=== PATIENT | male | born 1960 | race Caucasian/White ===

== ENCOUNTER 2022-03-09 10:33 | Emergency (ER) | payer SELFPAY ==
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
[2022-03-09 13:31] VITALS: BP 133/71; PULSE 88; O2SAT 94
== END 2022-03-09 13:33 | disposition home or self-care (01) ==
LOC: ED 10:33
DX: S27.1XXA Traumatic hemothorax, initial encounter (principal); S22.42XA Multiple fractures of ribs, left side, initial encounter for closed fracture; S20.412A Abrasion of left back wall of thorax, initial encounter; S30.811A Abrasion of abdominal wall, initial encounter; S50.312A Abrasion of left elbow, initial encounter; V20.4XXA Motorcycle driver injured in collision with pedestrian or animal in traffic accident, initial encounter; Z72.0 Tobacco use; Z28.310 Unvaccinated for COVID-19; Z79.891 Long term (current) use of opiate analgesic
CPT/HCPCS: 71250; 73080; 74176; 99285

== ENCOUNTER 2022-04-07 07:20 | Observation (INO) | payer SELFPAY ==
[2022-04-07] MEDS ORDERED: DUONEB 0.5-3 MG/3 ml Neb IH ONE ×4 (07:23→11:08)
[2022-04-07] MEDS ORDERED: solu-MEDROL ONE (07:26)
[2022-04-07] MEDS ORDERED: Sterile H2O 10 ml IJ ONE (07:26)
[2022-04-07] MEDS ORDERED: solu-MEDROL 125 MG, Sterile H2O 10 ml 2 ML IV ONE ×2 (07:27)
[2022-04-07] MEDS ORDERED: PROVENTIL Solution 2.5 MG/0.5 ML IH ONE ×2 (07:33)
[2022-04-07 07:34] LABS: Absolute Neutrophil Ct (ANC) 8.57 x10^3/uL (1.4-6.9); Basophil (Absolute #) 0.12 x10^3/uL (0-0.4); Eosinophil % 3.5 % (0.00-5.0); Eosinophil (Absolute #) 0.47 x10^3/uL (0-0.5); Hematocrit 52.4 % (42-50); Hemoglobin 17.2 g/dL (12.5-18.0); Lymphocyte (Absolute #) 2.84 x10^3/uL (1.0-4.6); Lymphocytes % 21.4 % (24.0-44.0); Mean Cell Volume 97.8 fL (78-100); Mean Corpuscular Hemoglobin 32.1 pg (26-32); Mean Corpuscular Hgb Concent. 32.8 g/dL (32-36); Mean Platelet Volume 9.8 fL (7.5-11.0); Monocyte (Absolute #) 1.22 x10^3/uL (0.0-1.3); Monocytes % 9.2 % (0.0-12.0); Neutrophil % 64.6 % (36.0-66.0); Platelet Count 231 x10^3/uL (150-450); Red Blood Count 5.36 x10^6/uL (4.1-5.6); Red Cell Distribution Width 13.2 % (11.5-14.0); White Blood Count 13.3 x10^3/uL (4.0-10.5)
[2022-04-07 07:49] LABS: INR 1.01 (0.8-3.0); PROTIME 10.7 SECONDS (9.4-12.5); PTT 26.2 SECONDS (25.1-36.5)
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
[2022-04-07 07:56] LABS: ALBUMIN 4.7 g/dL (3.5-5.0); ALKALINE PHOSPHATASE 127 U/L (38-126); ANION GAP 13.5 MEQ/L (5-15); BLOOD UREA NITROGEN 20 mg/dL (9-20); CHLORIDE 100 mmol/L (98-107); Calcium 9.4 mg/dL (8.4-10.2); Carbon Dioxide 31 mmol/L (22-30); Creatinine 1 1.12 mg/dL (0.66-1.25); EST GLOMERULAR FILTRATION RATE > 60.0 ML/MIN; Glucose 160 mg/dL (74-106); NT PRO BNP 63.5 pg/mL (0-900); Potassium 4.1 mmol/L (3.5-5.1); SGOT/AST 27 U/L (17-59); SGPT/ALT 23 U/L (0-50); SODIUM 140 mmol/L (137-145); Total Protein 8.3 g/dL (6.3-8.2)
[2022-04-07 08:09] LABS: VBG BASE EXCESS 5.5 (-2.0-2.0); VBG CARBOXYHEMOGLOBIN 4.1 % T HGB (0.0-6.9); VBG HCO3- 34.6 meq/L (22-28); VBG HEMOGLOBIN 18.1
[2022-04-07 08:10] LABS: VBG pH 7.29 (7.32-7.42)
[2022-04-07] MEDS ORDERED: VENTOLIN 20 ML BOTTLE IH SCH (08:15)
[2022-04-07 08:29] LABS: INFLUENZA A NEGATIVE (NEGATIVE); INFLUENZA B NEGATIVE (NEGATIVE); RESPIRATORY SYNCTIAL VIRUS NEGATIVE (Negative); SARS-CoV-2 Xpert Express NEGATIVE (NEGATIVE)
--- NOTE | 2022-04-07 09:26 | XRAY ---
Indication: Dyspnea. Left rib fractures on CT chest March 10, 2022. Comparison: None Portable chest hyperinflated with recent CT proven left base hemothorax/atelectasis, right base calcified pleural plaquing, and multiple left rib fractures. Remaining heart and lungs unremarkable. Bony thorax demonstrates mild osteopenia and degenerative changes.
--- NOTE | 2022-04-07 10:20 | XRAY ---
Indication: Altered loss of consciousness. Multiple contiguous axial images obtained through the head without contrast. Comparison: None Normal appearing brain parenchyma, ventricles, and bony calvarium for patient's age. Paranasal sinuses and mastoid air cells are clear. Impression: Normal CT head without contrast exam.
--- NOTE | 2022-04-07 10:27 | XRAY ---
Indication: Dyspnea. Multiple contiguous axial images obtained through the chest without contrast. Comparison: March 10, 2022 Lungs again demonstrates bibasilar fibrosis/scarring and right base calcified pleural plaquing. No new pulmonary mass, infiltrate, effusion, or pneumothorax. Heart not enlarged. Aorta again normal in course and caliber with minimal arteriosclerotic calcifications. Stable small subcarinal and tiny right hilar calcified nodes. No pathologic mediastinal lymphadenopathy. Bony thorax again demonstrates mild degenerative changes throughout the spine, old bilateral rib fractures, and healing left 5-8 rib fractures. Limited upper abdomen including adrenal glands are unremarkable. Impression: 1. Again bibasilar fibrosis/scarring, right base calcified pleural plaquing, degenerative spondylosis, old/healing rib fractures, and old granulomatous disease. 2. Remaining CT chest without contrast exam is negative.
--- NOTE | 2022-04-07 10:34 | XRAY ---
Indication: Dyspnea for weeks. Pulmonary embolus. Multiple contiguous axial images obtained through the chest using 100 cc Isovue 370 contrast and pulmonary embolus protocol. Comparison: None. There is same day CT chest without contrast exam. No evidence for IV contrast present. x ray technologist reports complete IV infiltration at injection site. Noncontrasted heart is not enlarged. Aorta remains minimally arteriosclerotic. Stable subcarinal/right hilar calcified nodes. Lungs again demonstrates bibasilar fibrosis/scarring and right base calcified pleural plaquing. No new/acute cardiopulmonary abnormalities. Bony thorax again demonstrates degenerative changes throughout the spine, old bilateral rib fractures, and healing left 5-8 rib fractures. Impression: 1. Nondiagnostic for pulmonary embolus evaluation due to IV infiltration. 2. Remaining CT chest unchanged with respect to same day CT chest without contrast exam.
[2022-04-07] MEDS ORDERED: XYLOCAINE 1% HCL 20 ML MDV ONE ×2 (11:37→11:45)
[2022-04-07] MEDS: Sodium Chloride 0.9% 1000 ML 1,000 ML IV SCH ×2 (12:48→23:58)
--- NOTE | 2022-04-07 13:31 | ANESPROCNO ---
Anesthesia Procedure Note - Anesthesia Procedure Note Procedure Date:: 04/07/22 Procedure Time:: 12:00 Anesthesia Procedure Note: Consulted by ER for IV access. Risks/benefits explained for midline IV placement. Pt wishes to proceed. Using ultrasound guidance, LUE scanned and target vessel left basilic vein identified. LUE prepped 2%CHG70%IPA and draped sterile fashion. Skin and subcutaneous tissue over target vessel localized with 5cc 1% lidocaine. LUE basilic vein cannulated with 21 ga X 7 cm needle. A 0.46 mm Nitinol wire was then placed through needle into target vessel. Wire placement confirmed in both short and long vessel axis. Needle withdrawn and a 4F X 10 cm co-axial catheter was introduced over wire into vessel and wire withdrawn. A saline lock was attached and sterile dressing and biopatch applied. Catheter with brisk venous blood return and flushes easily. There were no complications. The patient tolerated the procedure well.
[2022-04-07] MEDS: solu-MEDROL 125 MG, Sterile H2O 10 ml 2 ML IV SCH ×6 (13:38→23:00)
[2022-04-07] MEDS: Zithromax 500 MG/ 250 ML NaCl Premix 500 MG/250 ML IVPB IV SCH (13:39)
[2022-04-07] MEDS: DUONEB 0.5-3 MG/3 ml Neb IH SCH ×3 (14:31→22:55)
[2022-04-07] MEDS: ROCEPHIN 1 Gm-D5w 50 ml Bag** 1 G/50 ML IVPB IV SCH (15:06)
[2022-04-07] MEDS: ENOXAPARIN SODIUM SQ SCH (15:06)
[2022-04-08] MEDS: DUONEB 0.5-3 MG/3 ml Neb IH SCH ×6 (02:55→23:13)
[2022-04-08 04:37] LABS: A-aADO2 74; ABG HEMOGLOBIN 16.1; ABG POTASSIUM 4.9 (3.5-5.1); ABG SITE LEFT RADIAL; ALLEN TEST OK? YES; ARTERIAL BLD GAS O2 SATURATION 98.1 % (95-100); ARTERIAL BLOOD GAS BASE EXCESS 6.9 (-2.0-2.0); ARTERIAL BLOOD GAS FIO2 32 %; ARTERIAL BLOOD GAS PCO2 52 mmHg (35-45); ARTERIAL BLOOD GAS PO2 89 mmHg (75-100); ARTERIAL BLOOD GAS pH 7.41 (7.35-7.45); CARBOXYHEMOGLOBIN 2.4 % THgb (0.0-6.9); HGB O2 SAT 94.6 g/dF (94-100); Methhemoglobin 1.2 % (1.4-1.5)
[2022-04-08 04:54] LABS: ALBUMIN 4.1 g/dL (3.5-5.0); ALKALINE PHOSPHATASE 100 U/L (38-126); ANION GAP 6.6 MEQ/L (5-15); BLOOD UREA NITROGEN 22 mg/dL (9-20); CHLORIDE 100 mmol/L (98-107); Carbon Dioxide 31 mmol/L (22-30); Creatinine 1 0.92 mg/dL (0.66-1.25); EST GLOMERULAR FILTRATION RATE > 60.0 ML/MIN; Glucose 179 mg/dL (74-106); Hematocrit 45.8 % (42-50); Hemoglobin 15.3 g/dL (12.5-18.0); Mean Cell Volume 95.8 fL (78-100); Mean Corpuscular Hgb Concent. 33.4 g/dL (32-36); Mean Platelet Volume 10.2 fL (7.5-11.0); Platelet Count 178 x10^3/uL (150-450); Potassium 4.5 mmol/L (3.5-5.1); Red Blood Count 4.78 x10^6/uL (4.1-5.6); Red Cell Distribution Width 13.2 % (11.5-14.0); SGOT/AST 20 U/L (17-59); SGPT/ALT 19 U/L (0-50); SODIUM 133 mmol/L (137-145); White Blood Count 18.7 x10^3/uL (4.0-10.5)
[2022-04-08] MEDS ORDERED: solu-MEDROL ONE (05:16)
[2022-04-08] MEDS: solu-MEDROL 125 MG, Sterile H2O 10 ml 2 ML IV SCH ×6 (05:17→18:02)
[2022-04-08] MEDS: TYLENOL 325 MG PO PRN ×2 (06:43→12:06)
[2022-04-08] MEDS ORDERED: TORAdol 30 mg Injection IV ONE (09:01)
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
[2022-04-08] MEDS ORDERED: PHARMACY DOSING REQUEST MC ONE (09:06)
--- NOTE | 2022-04-08 09:12 | XRAY ---
Exam: AP portable chest film (2 images) from 6:28 AM on 04/08/2022. Comparison: CT of the chest without and with IV contrast from 04/07/2022 and AP portable chest film from 04/07/2022. Indication: 62-year-old male with COPD. Findings: The photo technologist stated that it was difficult for the patient is sit completely upright for the images. Therefore, a second image was obtained to obtain the lower chest. The transverse heart size appears within normal limits. A few small right perihilar granulomatous calcifications are again seen. The lungs are mildly hyperinflated. The current study reveals no definite infiltrates, vascular congestion, or pneumothorax. In retrospect, yesterday's CT of the chest suggests some minimal groundglass airspace disease at the posterior lateral margin of the left lung base in the vicinity of the recent left fifth through eighth rib fractures. This is not seen radiographically. This could be due to minimal lung contusion. An infectious etiology is not excluded with certainty. Correlate clinically regarding pneumonitis. I again note some chronic blunting of the lateral costophrenic angles which does not appear to be due to pleural fluid on yesterday's CT scan, but rather mild bibasilar pleural-parenchymal scarring. Lateral osteophyte formation is seen within the thoracic spine. There is at least moderate degenerative change of the left glenohumeral joint space. Only mild degenerative change of the right glenohumeral joint space is seen. There is incomplete healing of the prior left fifth through eighth rib fractures as of yet. Other older bilateral rib fracture deformities are again seen. Impression: 1. Mildly hyperinflated chest with evidence of chronic bibasilar pleural-parenchymal scarring blunting both lateral costophrenic angles. This is similar to 04/07/2022. 2. Radiographically, I do not see any airspace infiltrate or other evidence of acute cardiopulmonary disease. However, see above. 3. Skeletal findings, as discussed above.
[2022-04-08] MEDS: ROCEPHIN 1 Gm-D5w 50 ml Bag** 1 G/50 ML IVPB IV SCH (09:19)
[2022-04-08] MEDS: ENOXAPARIN SODIUM SQ SCH (09:19)
[2022-04-08] MEDS: Aminophylline 500 MG/20 ML*** 500 MG in Sodium Chloride 0.9% 500 ML 480 ML IV SCH ×2 (09:26→21:26)
[2022-04-08] MEDS: Zithromax 500 MG/ 250 ML NaCl Premix 500 MG/250 ML IVPB IV SCH (10:26)
[2022-04-08] MEDS: Sodium Chloride 0.9% 1000 ML 1,000 ML IV SCH ×2 (12:01→21:26)
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
[2022-04-09] MEDS: solu-MEDROL 125 MG, Sterile H2O 10 ml 2 ML IV SCH ×6 (00:06→11:52)
[2022-04-09] MEDS: DUONEB 0.5-3 MG/3 ml Neb IH SCH ×5 (03:25→20:28)
[2022-04-09] MEDS: Sodium Chloride 0.9% 1000 ML 1,000 ML IV SCH ×3 (06:13→23:03)
[2022-04-09 08:32] LABS: Absolute Neutrophil Ct (ANC) 15.07 x10^3/uL (1.4-6.9); Basophil (Absolute #) 0.02 x10^3/uL (0-0.4); Eosinophil (Absolute #) 0 x10^3/uL (0-0.5); Hemoglobin 14.8 g/dL (12.5-18.0); Lymphocyte (Absolute #) 0.51 x10^3/uL (1.0-4.6); Lymphocytes % 3.1 % (24.0-44.0); Mean Cell Volume 97.2 fL (78-100); Mean Corpuscular Hgb Concent. 32.9 g/dL (32-36); Mean Platelet Volume 9.9 fL (7.5-11.0); Monocytes % 3.1 % (0.0-12.0); Platelet Count 165 x10^3/uL (150-450); Red Blood Count 4.63 x10^6/uL (4.1-5.6); Red Cell Distribution Width 13.2 % (11.5-14.0); White Blood Count 16.2 x10^3/uL (4.0-10.5)
[2022-04-09 08:58] LABS: ANION GAP 5.1 MEQ/L (5-15); BLOOD UREA NITROGEN 21 mg/dL (9-20); CHLORIDE 101 mmol/L (98-107); Calcium 8.8 mg/dL (8.4-10.2); Carbon Dioxide 35 mmol/L (22-30); Creatinine 1 0.72 mg/dL (0.66-1.25); EST GLOMERULAR FILTRATION RATE > 60.0 ML/MIN; Glucose 187 mg/dL (74-106); Potassium 4.6 mmol/L (3.5-5.1); SODIUM 136 mmol/L (137-145)
[2022-04-09 09:30] LABS: Slide Review 1 YES
[2022-04-09] MEDS: ROCEPHIN 1 Gm-D5w 50 ml Bag** 1 G/50 ML IVPB IV SCH (10:31)
[2022-04-09] MEDS: Zithromax 500 MG/ 250 ML NaCl Premix 500 MG/250 ML IVPB IV SCH (10:32)
[2022-04-09] MEDS: ENOXAPARIN SODIUM SQ SCH (10:32)
[2022-04-09] MEDS: TYLENOL 325 MG PO PRN (11:52)
--- NOTE | 2022-04-09 12:35 | PCM.NOTE ---
Date and Time: 04/09/22 1231 Subjective Assessment: Pt may feel a little better. Was seen by Dr. Velasquez yesterday, thank you! Tolerating po. - Review of Systems Constitutional: No Fever Respiratory: Cough, Short Of Breath Objective Exam General Appearance: no apparent distress, alert, obese Neurologic Exam: oriented x 3, cooperative Skin Exam: normal color, warm, dry, No rash Eye Exam: eyes nml inspection Ears, Nose, Throat Exam: moist mucous membranes Neck Exam: normal inspection Respiratory Exam: diminished breath sounds (good air exchange), wheezing (throughout, although somewhat less marked than yesterday.), No crackles/rales, No rhonchi Cardiovascular Exam: regular rate/rhythm, normal heart sounds, No murmur Gastrointestinal/Abdomen Exam: soft, normal bowel sounds, No tenderness, No distention, No mass, No guarding, No rebound Extremity Exam: normal inspection, No pedal edema, No swelling Back Exam: normal inspection, No rash OBJECTIVE DATA Vital Signs: Vital Signs - 24 hr Temp Pulse Resp BP Pulse Ox 04/09/22 12:00 96.7 F 95 H 20 159/73 90 L 04/09/22 11:00 100 H 22 92 L 04/09/22 07:12 97.3 F 98 H 22 135/65 96 04/09/22 06:44 98 H 22 96 04/09/22 04:00 97 F 116 H 26 H 112/96 96 04/09/22 03:25 95 H 19 94 L 04/08/22 23:43 97.6 F 100 H 17 149/76 96 04/08/22 23:13 99 H 26 H 93 L 04/08/22 19:34 96.8 F 117 H 22 150/67 95 04/08/22 18:34 97 H 24 97 04/08/22 16:00 96.9 F 90 22 149/68 93 L 04/08/22 14:49 96 H 22 95 Pain Assessment - Last Documented Pain Intensity 0 Pain Scale Used 0-10 Pain Scale Intake and Output: Intake & Output 04/07/22 04/08/22 04/09/22 04/10/22 11:59 11:59 11:59 11:59 Intake Total 3577 5814 Balance 3573 5888 Weight 129.274 kg 127.6 kg Lab Results: Lab Results-Last 24 Hours 04/09/22 04/09/22 04/09/22 Range/Units 08:28 08:28 08:28 WBC 16.2 H (4.0-10.5) x10^3/uL RBC 4.63 (4.1-5.6) x10^6/uL Hgb 14.8 (12.5-18.0) g/dL Hct 45.0 (42-50) % MCV 97.2 (78-100) fL MCH 32.0 (26-32) pg MCHC 32.9 (32-36) g/dL RDW 13.2 (11.5-14.0) % Plt Count 165 (150-450) x10^3/uL MPV 9.9 (7.5-11.0) fL Gran % 93.0 H (36.0-66.0) % Immature Gran % (Auto) 0.7 H (0.00-0.4) % Nucleat RBC Rel Count 0.0 (0.00-0.1) % Eos # (Auto) 0 (0-0.5) x10^3/uL Immature Gran # (Auto) 0.12 H (0.00-0.03) x10^3u/L Absolute Lymphs (auto) 0.51 L (1.0-4.6) x10^3/uL Absolute Monos (auto) 0.50 (0.0-1.3) x10^3/uL Absolute Nucleated RBC 0.00 (0.00-0.01) x10^3u/L Lymphocytes % 3.1 L (24.0-44.0) % Monocytes % 3.1 (0.0-12.0) % Eosinophils % 0.0 (0.00-5.0) % Basophils % 0.1 (0.0-0.4) % Absolute Granulocytes 15.07 H (1.4-6.9) x10^3/uL Basophils # 0.02 (0-0.4) x10^3/uL Sodium 136 L (137-145) mmol/L Potassium 4.6 (3.5-5.1) mmol/L Chloride 101 (98-107) mmol/L Carbon Dioxide 35 H (22-30) mmol/L Anion Gap 5.1 (5-15) MEQ/L BUN 21 H (9-20) mg/dL Creatinine 0.72 (0.66-1.25) mg/dL Estimated GFR > 60.0 ML/MIN Glucose 187 H (74-106) mg/dL Calcium 8.8 (8.4-10.2) mg/dL Theophylline 5.5 L (10-20) ug/mL Slides for Path Review YES Radiology Exams: Radiology Procedures Category Date Time Status CHEST 1 VIEW (PORTABLE) Routine Exams 04/08/22 06:00 Completed ECHO W/2D AND DOPPLER [US] Routine Exams 04/08/22 13:16 Taken Multi-Disciplinary Progress Notes: Multi-Disciplinary Progress Notes 04/09/22 09:33 Case Management Note by Mercy Monteiro S/W PATIENT TODAY AND REVIEWED CHART. PATIENT CURRENTLY ON 3L/NC MAY NEED AT TIME OF DC. PATIENT WAS ABLE TO GET PRESUMPTIVE MEDICAID- HE WAS EDUCATED ON IMPORTANCE OF FINISHING THE PROCESS AND USING THAT PRESUMPTIVE LETTER INSURANCE CARD UNTIL PROCESS IS FINISHED AND HE IS ASSIGNED PLAN. HE VERIFIED UNDERSTANDING Initialized on 04/09/22 09:33 - END OF NOTE Assessment/Plan (1) COPD exacerbation Current Visit: Yes Status: Acute Assessment & Plan: mild improvement. On day #3 of zithromax and rocephin. Steroid changed from 125mg q6h IV to 80mg IV q6h. On theophylline drip. Dr. Velasquez was consulted, ordered an echocardiogram, otherwise no changes. Code(s): J44.1 - CHRONIC OBSTRUCTIVE PULMONARY DISEASE W (ACUTE) EXACERBATION (2) Tobacco abuse Current Visit: Yes Status: Acute Assessment & Plan: pt plans to quit smoking. Code(s): Z72.0 - TOBACCO USE (3) Obesity Current Visit: Yes Status: Chronic Qualifiers: Obesity type: due to excess calories Obesity classification: adult class 2 (BMI 35 - 39.9) Body mass index: BMI 36.0-36.9 Code(s): E66.9 - OBESITY, UNSPECIFIED
--- NOTE | 2022-04-09 12:54 | ECHO ---
DATE OF PROCEDURE: 04/08/2022 CLINICAL INFORMATION: Shortness of breath. The M-mode 2D, and Doppler echocardiogram including color flow Doppler shows the left ventricle is mildly dilated. There is no thrombus present. There is borderline concentric left ventricular hypertrophy present. The left ventricular systolic function is at lower limits of normal. The ejection fraction is calculated to be 54%. There is evidence of possible impaired left ventricular relaxation. The right ventricle is grossly normal. The left atrium is normal in size. The interatrial septum is intact. The right atrium is normal. The aortic valve opens well. There is no aortic regurgitation. The mitral valve is normal. There is mild tricuspid regurgitation. The right ventricular systolic pressure is calculated to be 17 mm of Mercury. The pulmonic valve is not well visualized. The aortic root is mildly dilated. There is no pericardial effusion present. There are limited windows. IMPRESSION: 1) LOW NORMAL CONTRACTILITY OF THE LEFT VENTRICLE. 2) BORDERLINE CONCENTRIC LEFT VENTRICULAR HYPERTROPHY. 3) POSSIBLE IMPAIRED LEFT VENTRICULAR RELAXATION. 4) MILD TRICUSPID REGURGITATION. 5) NORMAL RIGHT VENTRICULAR SYSTOLIC PRESSURE. 6) MILD AORTIC ROOT DILATATION.
[2022-04-09] MEDS: Aminophylline 500 MG/20 ML*** 500 MG in Sodium Chloride 0.9% 500 ML 480 ML IV SCH (13:31)
[2022-04-09] MEDS: solu-MEDROL 80 MG, Sterile H2O 10 ml 1 ML IV SCH ×4 (18:48→23:02)
[2022-04-10] MEDS: Aminophylline 500 MG/20 ML*** 500 MG in Sodium Chloride 0.9% 500 ML 480 ML IV SCH ×2 (01:50→16:22)
[2022-04-10] MEDS: DUONEB 0.5-3 MG/3 ml Neb IH SCH ×7 (03:22→22:55)
[2022-04-10 05:03] LABS: Hemoglobin 14.7 g/dL (12.5-18.0); Mean Corpuscular Hemoglobin 31.7 pg (26-32); Mean Corpuscular Hgb Concent. 32.7 g/dL (32-36); Mean Platelet Volume 9.7 fL (7.5-11.0); Platelet Count 156 x10^3/uL (150-450); Red Blood Count 4.64 x10^6/uL (4.1-5.6); Red Cell Distribution Width 13.1 % (11.5-14.0); White Blood Count 12.7 x10^3/uL (4.0-10.5)
[2022-04-10] MEDS: solu-MEDROL 80 MG, Sterile H2O 10 ml 1 ML IV SCH ×6 (05:19→18:48)
[2022-04-10 05:21] LABS: BLOOD UREA NITROGEN 19 mg/dL (9-20); CHLORIDE 98 mmol/L (98-107); Calcium 8.8 mg/dL (8.4-10.2); Creatinine 1 0.79 mg/dL (0.66-1.25); EST GLOMERULAR FILTRATION RATE > 60.0 ML/MIN; Glucose 149 mg/dL (74-106); SODIUM 137 mmol/L (137-145)
[2022-04-10 05:29] LABS: Carbon Dioxide 34 mmol/L (22-30)
--- NOTE | 2022-04-10 08:14 | PCM.NOTE ---
Date and Time: 04/10/22812 Subjective Assessment: patient states he is feeling better, he is resting comfortably with oxygen via nasal cannula currently Objective Exam General Appearance: no apparent distress Neurologic Exam: alert, oriented x 3 Respiratory Exam: prolonged expirations, wheezing, No accessory muscle use Cardiovascular Exam: regular rate/rhythm, normal heart sounds Gastrointestinal/Abdomen Exam: soft, No tenderness, No mass Extremity Exam: normal inspection, normal range of motion OBJECTIVE DATA Vital Signs: Vital Signs - 24 hr Temp Pulse Resp BP Pulse Ox 04/10/22 06:54 85 20 96 04/10/22 04:00 98.3 F 73 21 132/61 97 04/10/22 03:23 73 20 97 04/09/22 23:41 96.9 F 91 H 22 137/72 96 04/09/22 20:28 107 H 24 96 04/09/22 20:00 97.7 F 101 H 24 123/77 94 L 04/09/22 16:00 96.8 F 92 H 18 173/80 95 04/09/22 14:55 98 H 20 96 04/09/22 12:00 96.7 F 95 H 20 159/73 90 L 04/09/22 11:00 100 H 22 92 L Pain Assessment - Last Documented Pain Intensity 0 Pain Scale Used 0-10 Pain Scale Intake and Output: Intake & Output 04/07/22 04/08/22 04/09/22 04/10/22 11:59 11:59 11:59 11:59 Intake Total 3573 5888 5493 Balance 3573 5897 5493 Weight 129.274 kg 127.6 kg 132.6 kg Lab Results: Lab Results-Last 24 Hours 04/09/22 04/09/22 04/09/22 Range/Units 08:28 08:28 08:28 WBC 16.2 H (4.0-10.5) x10^3/uL RBC 4.63 (4.1-5.6) x10^6/uL Hgb 14.8 (12.5-18.0) g/dL Hct 45.0 (42-50) % MCV 97.2 (78-100) fL MCH 32.0 (26-32) pg MCHC 32.9 (32-36) g/dL RDW 13.2 (11.5-14.0) % Plt Count 165 (150-450) x10^3/uL MPV 9.9 (7.5-11.0) fL Gran % 93.0 H (36.0-66.0) % Immature Gran % (Auto) 0.7 H (0.00-0.4) % Nucleat RBC Rel Count 0.0 (0.00-0.1) % Eos # (Auto) 0 (0-0.5) x10^3/uL Immature Gran # (Auto) 0.12 H (0.00-0.03) x10^3u/L Absolute Lymphs (auto) 0.51 L (1.0-4.6) x10^3/uL Absolute Monos (auto) 0.50 (0.0-1.3) x10^3/uL Absolute Nucleated RBC 0.00 (0.00-0.01) x10^3u/L Lymphocytes % 3.1 L (24.0-44.0) % Monocytes % 3.1 (0.0-12.0) % Eosinophils % 0.0 (0.00-5.0) % Basophils % 0.1 (0.0-0.4) % Absolute Granulocytes 15.07 H (1.4-6.9) x10^3/uL Basophils # 0.02 (0-0.4) x10^3/uL Sodium 136 L (137-145) mmol/L Potassium 4.6 (3.5-5.1) mmol/L Chloride 101 (98-107) mmol/L Carbon Dioxide 35 H (22-30) mmol/L Anion Gap 5.1 (5-15) MEQ/L BUN 21 H (9-20) mg/dL Creatinine 0.72 (0.66-1.25) mg/dL Estimated GFR > 60.0 ML/MIN Glucose 187 H (74-106) mg/dL Calcium 8.8 (8.4-10.2) mg/dL Theophylline 5.5 L (10-20) ug/mL Slides for Path Review YES 04/10/22 04/10/22 Range/Units 04:57 04:57 WBC 12.7 H (4.0-10.5) x10^3/uL RBC 4.64 (4.1-5.6) x10^6/uL Hgb 14.7 (12.5-18.0) g/dL Hct 45.0 (42-50) % MCV 97.0 (78-100) fL MCH 31.7 (26-32) pg MCHC 32.7 (32-36) g/dL RDW 13.1 (11.5-14.0) % Plt Count 156 (150-450) x10^3/uL MPV 9.7 (7.5-11.0) fL Gran % (36.0-66.0) % Immature Gran % (Auto) (0.00-0.4) % Nucleat RBC Rel Count (0.00-0.1) % Eos # (Auto) (0-0.5) x10^3/uL Immature Gran # (Auto) (0.00-0.03) x10^3u/L Absolute Lymphs (auto) (1.0-4.6) x10^3/uL Absolute Monos (auto) (0.0-1.3) x10^3/uL Absolute Nucleated RBC (0.00-0.01) x10^3u/L Lymphocytes % (24.0-44.0) % Monocytes % (0.0-12.0) % Eosinophils % (0.00-5.0) % Basophils % (0.0-0.4) % Absolute Granulocytes (1.4-6.9) x10^3/uL Basophils # (0-0.4) x10^3/uL Sodium 137 (137-145) mmol/L Potassium 4.0 (3.5-5.1) mmol/L Chloride 98 (98-107) mmol/L Carbon Dioxide 34 H (22-30) mmol/L Anion Gap 9.0 (5-15) MEQ/L BUN 19 (9-20) mg/dL Creatinine 0.79 (0.66-1.25) mg/dL Estimated GFR > 60.0 ML/MIN Glucose 149 H (74-106) mg/dL Calcium 8.8 (8.4-10.2) mg/dL Theophylline (10-20) ug/mL Slides for Path Review Radiology Exams: Radiology Procedures Category Date Time Status ECHO W/2D AND DOPPLER [US] Routine Exams 04/08/22 13:16 Draft Multi-Disciplinary Progress Notes: Multi-Disciplinary Progress Notes 04/09/22 09:33 Case Management Note by Mercy Monteiro S/W PATIENT TODAY AND REVIEWED CHART. PATIENT CURRENTLY ON 3L/NC MAY NEED AT TIME OF DC. PATIENT WAS ABLE TO GET PRESUMPTIVE MEDICAID- HE WAS EDUCATED ON IMPORTANCE OF FINISHING THE PROCESS AND USING THAT PRESUMPTIVE LETTER INSURANCE CARD UNTIL PROCESS IS FINISHED AND HE IS ASSIGNED PLAN. HE VERIFIED UNDERSTANDING Initialized on 04/09/22 09:33 - END OF NOTE Assessment/Plan (1) COPD exacerbation Current Visit: Yes Status: Acute Assessment & Plan: continue rocephin/zithromax, IV steroids, nebs and theophylline. slowly improving. Code(s): J44.1 - CHRONIC OBSTRUCTIVE PULMONARY DISEASE W (ACUTE) EXACERBATION
[2022-04-10] MEDS: Zithromax 500 MG/ 250 ML NaCl Premix 500 MG/250 ML IVPB IV SCH (08:38)
[2022-04-10] MEDS: ROCEPHIN 1 Gm-D5w 50 ml Bag** 1 G/50 ML IVPB IV SCH (08:39)
[2022-04-10] MEDS: ENOXAPARIN SODIUM SQ SCH (08:39)
[2022-04-10] MEDS: TYLENOL 325 MG PO PRN (08:46)
[2022-04-10] MEDS: Sodium Chloride 0.9% 1000 ML 1,000 ML IV SCH ×2 (10:18→21:39)
[2022-04-10] MEDS: CEPACOL SORE THROAT LOZENGE PO PRN (18:55)
[2022-04-11] MEDS: solu-MEDROL 80 MG, Sterile H2O 10 ml 1 ML IV SCH ×6 (00:44→13:56)
[2022-04-11] MEDS: DUONEB 0.5-3 MG/3 ml Neb IH SCH ×3 (02:51→11:26)
[2022-04-11] MEDS: Aminophylline 500 MG/20 ML*** 500 MG in Sodium Chloride 0.9% 500 ML 480 ML IV SCH (06:02)
[2022-04-11] MEDS: Sodium Chloride 0.9% 1000 ML 1,000 ML IV SCH (06:08)
[2022-04-11 07:31] LABS: ANION GAP 5.8 MEQ/L (5-15); BLOOD UREA NITROGEN 23 mg/dL (9-20); CHLORIDE 98 mmol/L (98-107); Calcium 8.7 mg/dL (8.4-10.2); Carbon Dioxide 34 mmol/L (22-30); Creatinine 1 0.73 mg/dL (0.66-1.25); EST GLOMERULAR FILTRATION RATE > 60.0 ML/MIN; Glucose 132 mg/dL (74-106); Potassium 4.1 mmol/L (3.5-5.1); SODIUM 133 mmol/L (137-145)
[2022-04-11 09:24] LABS: Hematocrit 45.8 % (42-50); Hemoglobin 15.1 g/dL (12.5-18.0); Mean Cell Volume 96.6 fL (78-100); Mean Corpuscular Hemoglobin 31.9 pg (26-32); Mean Platelet Volume 9.9 fL (7.5-11.0); Platelet Count 149 x10^3/uL (150-450); Red Blood Count 4.74 x10^6/uL (4.1-5.6); Red Cell Distribution Width 12.9 % (11.5-14.0); White Blood Count 9.8 x10^3/uL (4.0-10.5)
[2022-04-11] MEDS: Zithromax 500 MG/ 250 ML NaCl Premix 500 MG/250 ML IVPB IV SCH (09:56)
[2022-04-11] MEDS: CEPACOL SORE THROAT LOZENGE PO PRN (09:57)
[2022-04-11] MEDS: ENOXAPARIN SODIUM SQ SCH (09:57)
[2022-04-11] MEDS: ROCEPHIN 1 Gm-D5w 50 ml Bag** 1 G/50 ML IVPB IV SCH (11:24)
[2022-04-11 11:29] VITALS: O2SAT 88
[2022-04-11 11:51] VITALS: BP 180/95; PULSE 91
--- NOTE | 2022-04-18 10:50 | PCM.DS ---
Discharge Summary Date of Admission: 04/07/22 12:11 Date of Discharge: 04/11/22 Admitting Physician: CALVIN RITTER Consults: Consults on Case 04/08/22 08:56 Consult Pulmonology ROUTINE Primary Care Provider: NO FAMILY DOCTOR Allergies Allergies No Known Drug Allergies Allergy (Verified 04/07/22 15:46) Hospital Summary - Hospital Course Hospital Course: Pt. admitted and started on iv abx with steroids and oxygen support, she slowly improved to point, the patient felt she was well enough to go home, she was kept 1 more day to be certain and no further problems noted she was discharged to home stable. - Vitals & Intake/Output Vital Signs: Vital Signs Temperature 97.3 F 04/11/22 11:50 Pulse Rate 91 H 04/11/22 11:50 Respiratory Rate 19 04/11/22 11:50 Blood Pressure 180/95 04/11/22 11:50 O2 Sat by Pulse Oximetry 88 L 04/11/22 11:50 - Lab Result Diagrams: 04/11/22 06:11 04/11/22 06:11 - Procedures and Test Procedures and Tests throughout Hospitalization: Therapy Orders & Screens 04/07/22 08:05 Respiratory Therapy Assessment DAILY Comment: 04/07/22 12:37 Smoking Cessation Education ONCE Comment: Diagnosis: COPD exacerbation Smoking Status: Current every day smoker How long have you smoked: years Do you dip or chew tobacco: No 04/07/22 13:37 BiPap/CPAP ROUTINE Comment: Diagnosis: COPD exacerbation 04/07/22 14:46 Oxygen Nasal Cannula 3 lpm Comment: Diagnosis: COPD exacerbation Discharge Exam General Appearance: no apparent distress, alert Neurologic Exam: alert, oriented x 3, cooperative, normal mood/affect, nml cerebellar function, sensation nml, No motor deficits Eye Exam: PERRL, EOMI, eyes nml inspection Ears, Nose, Throat Exam: normal ENT inspection, pharynx normal, moist mucous membranes Neck Exam: normal inspection, non-tender, supple, full range of motion Respiratory Exam: normal breath sounds, lungs clear, No respiratory distress Cardiovascular Exam: regular rate/rhythm, normal heart sounds Gastrointestinal/Abdomen Exam: soft, No tenderness, No mass Male Genitalia Exam: deferred Rectal Exam: deferred Back Exam: normal inspection, normal range of motion, No CVA tenderness, No vertebral tenderness Extremity Exam: normal inspection, normal range of motion Skin Exam: normal color, warm, dry Final Diagnosis/Problem List - Final Discharge Diagnosis/Problem (1) COPD exacerbation Status: Acute Code(s): J44.1 - CHRONIC OBSTRUCTIVE PULMONARY DISEASE W (ACUTE) EXACERBATION (2) Tobacco abuse Status: Acute Code(s): Z72.0 - TOBACCO USE (3) Obesity Status: Chronic Code(s): E66.9 - OBESITY, UNSPECIFIED - Discharge Discharge Date: 04/11/22 Disposition: Home, Self-Care Condition: Stable Prescriptions: New Amox Tr/Potass Clav. 875 mg [Augmentin 875-125 Tablet] 875 mg PO BID 10 Days #20 tablet Prednisone 20 mg [Deltasone 20 mg] 40 mg PO DAILY 5 Days #5 tablet Azithromycin [Zithromax] 250 mg PO DAILY 5 Days #6 tablet Instructions: Quitting Smoking, Exacerbation of COPD (DC) Follow up with: MAYRA SANTANA [ACTIVE STAFF] - 2 weeks () CALVIN RITTER [ACTIVE STAFF] - 5 Days (Call for follow up appointment next week. [phone]) Forms: Discharge Instructions
== END 2022-04-11 13:38 | disposition home or self-care (01) ==
LOC: ED 07:20 → MED SURG 12:11
PROVIDERS: ADMIT Family Medicine; ATTEND Family Medicine
DX: J44.1 Chronic obstructive pulmonary disease with (acute) exacerbation (principal); Z72.0 Tobacco use; E66.9 Obesity, unspecified; Z20.828 Contact with and (suspected) exposure to other viral communicable diseases
CPT/HCPCS: 0241U; 36000; 36415; 36600; 71045; 71260; 80048; 80053; 80198; 82375; 82803; 82805; 83880; 84484; 85025; 85027; 85379; 85610; 85730; 93005; 93268; 93306; 94002; 94003; 94640; 94762; 96374; 99285; 99291; G0378; 36410; 70450; 71250; J0280; J0456; J0696; J1650; J1885; J2920; J2930; A9270-GY

== ENCOUNTER 2024-10-31 23:01 | Emergency (ER) | payer OTHER, SELFPAY ==
[2024-10-31] MEDS ORDERED: DUONEB 0.5-3 MG/3 ml Neb IH ONE (23:14)
--- NOTE | 2024-10-31 23:28 | ERPHSYRPT ---
- History of Present Illness Time Seen by Provider: 10/31/24 23:25 Source: patient Exam Limitations: no limitations Physician History: Patient is a 64-year-old male pack per day smoker presents to our ED for evaluation of shortness of breath. Her symptoms of gotten progressively worse over the past several days. Patient has not followed up with her primary care doctor in several years. Patient advises that he has been experiencing leg swelling as well. He denies a history of CHF. No chest pain no nausea vomiting or diaphoresis. Symptoms are moderate in intensity. Shortness of breath worse with exertion. Patient otherwise feels well. He voices no other complaints or concerns at this time. Portions of this note were created with voice recognition technology. There may be grammatical, spelling, punctuation or sound alike errors Timing/Duration: today Severity: moderate Modifying Factors: Improves With: nothing Associated Symptoms: denies symptoms Allergies/Adverse Reactions: No Known Drug Allergies Allergy (Verified 10/31/24 23:02) Home Medications: No Reportable Medications [No Reported Medications] 11/01/24 [History] Hx Tetanus, Diphtheria Vaccination/Date Given: Yes Hx Influenza Vaccination/Date Given: No Hx Pneumococcal Vaccination/Date Given: No - Review of Systems Constitutional: No Symptoms, No Fever, No Chills Eyes: No Symptoms Ears, Nose, & Throat: No Symptoms Respiratory: No Symptoms, No Cough, No Dyspnea Cardiac: No Symptoms, No Chest Pain, No Edema, No Syncope Abdominal/Gastrointestinal: No Symptoms, No Abdominal Pain, No Nausea, No Vomiting, No Diarrhea Genitourinary Symptoms: No Symptoms, No Dysuria Musculoskeletal: No Symptoms, No Back Pain, No Neck Pain Skin: No Symptoms, No Rash Neurological: No Symptoms, No Dizziness, No Focal Weakness, No Sensory Changes Psychological: No Symptoms Endocrine: No Symptoms Hematologic/Lymphatic: No Symptoms Immunological/Allergic: No Symptoms All Other Systems: Reviewed and Negative - Past Medical History Pertinent Past Medical History: No Cardiac History: Hypertension - Past Surgical History Past Surgical History: Yes Other Surgical History: aorta Significant Family History: no pertinent family hx - Social History Smoking Status: Current every day smoker How long have you smoked: years Exposure to second hand smoke: Yes Drug Use: none - Nursing Vital Signs Nursing Vital Signs: Initial Vital Signs Blood Pressure 177/82 10/31/24 23:01 O2 Sat by Pulse Oximetry 98 10/31/24 23:01 Pain Scale Pain Intensity 0 - Physical Exam General Appearance: no apparent distress, alert Eye Exam: PERRL/EOMI, eyes nml inspection Ears, Nose, Throat Exam: normal ENT inspection, moist mucous membranes Neck Exam: normal inspection, non-tender, supple, full range of motion Respiratory Exam: respiratory distress (Mild respiratory distress), diminished breath sounds, rhonchi, wheezing Cardiovascular Exam: regular rate/rhythm, normal heart sounds, normal peripheral pulses Gastrointestinal/Abdomen Exam: soft, normal bowel sounds, No tenderness, No mass Back Exam: normal inspection, normal range of motion, No CVA tenderness, No vertebral tenderness Extremity Exam: normal inspection, normal range of motion, pelvis stable Neurologic Exam: alert, oriented x 3, cooperative, normal mood/affect, sensation nml, No motor deficits Skin Exam: normal color, warm, dry, No rash Lymphatic Exam: No adenopathy SpO2 Interpretation: normal O2 Delivery: Room Air - Course Nursing assessment & vital signs reviewed: Yes EKG Interpreted by Me: RATE (91), Sinus Rhythm, NORMAL AXIS, NORMAL INTERVALS, NORMAL QRS - CT Exams Chest CT Interpretation: Tele-radiologist Report (Possible intimal irregularity or flap in the proximal descending aorta. Evidence of pulmonary hypertension) Ordered Tests: Active Orders 24 hr Category Date Time Status Encoding Clerk STAT Care 10/31/24 23:24 Active EKG-ER Only STAT Care 10/31/24 23:23 Active IV Insertion STAT Care 10/31/24 23:23 Active Pulse Oximetry (ED) STAT Care 10/31/24 23:23 Active CHEST WITH CONTRAST [CT] Stat Exams 11/01/24 01:38 Completed CBC W DIFF Stat Lab 10/31/24 23:44 Completed CMP Stat Lab 10/31/24 23:44 Completed D-DIMER QUANTITATIVE Stat Lab 11/01/24 00:00 Completed NT PRO BNPII Stat Lab 10/31/24 23:44 Completed TROPONIN Q4H Lab 10/31/24 23:44 Completed TROPONIN Q4H Lab 11/01/24 03:26 Completed TROPONIN Q4H Lab 11/01/24 07:30 Ordered UA W/RFX UR CULTURE Stat Lab 11/01/24 00:46 Completed Respiratory Therapy Assessment UD RT 10/31/24 23:47 Completed Medication Summary Discontinued Medications Generic Name Dose Route Start Last Admin Trade Name Freq PRN Reason Stop Dose Admin Albuterol/Ipratropium Confirm 10/31/24 23:14 Ipratropium/Albuterol Sulfate 3 Ml Ampul.Neb Administered 10/31/24 23:15 Dose 3 ml IH .STK-MED ONE Albuterol/Ipratropium 3 ml 10/31/24 23:46 10/31/24 23:47 Ipratropium/Albuterol Sulfate 3 Ml Ampul.Neb IH 10/31/24 23:47 3 ml STAT ONE Administration Lab/Rad Data: Laboratory Result Diagrams 10/31/24 23:44 10/31/24 23:44 Laboratory Results 11/01/24 11/01/24 11/01/24 Range/Units 03:26 00:46 00:00 WBC (4.23-9.07) x10^3/uL RBC (4.63-6.08) x10^6/uL Hgb (13.7-17.5) g/dL Hct (40.1-51.0) % MCV (79.0-92.2) fL MCH (25.7-32.2) pg MCHC (32.3-36.5) g/dL RDW (11.6-14.4) % Plt Count (163-337) x10^3/uL MPV (9.4-12.4) fL Gran % (34.0-67.9) % Immature Gran % (Auto) (0.001-0.429) % Nucleat RBC Rel Count (0.00-0.2) % Eos # (Auto) (0.04-0.54) x10^3/uL Immature Gran # (Auto) (0.001-0.031) x10^3u/L Absolute Lymphs (auto) (1.32-3.57) x10^3/uL Absolute Monos (auto) (0.30-0.82) x10^3/uL Absolute Nucleated RBC (0.00-0.012) x10^3u/L Lymphocytes % (21.8-53.1) % Monocytes % (5.3-12.2) % Eosinophils % (0.8-7.0) % Basophils % (0.2-1.2) % Absolute Granulocytes (1.78-5.38) x10^3/uL Basophils # (0.01-0.08) x10^3/uL D-Dimer 0.63 H* (0.0-0.50) mg/L Sodium (135-145) mmol/L Potassium (3.5-5.1) mmol/L Chloride (98-107) mmol/L Carbon Dioxide (22-30) mmol/L Anion Gap (5-15) MEQ/L BUN (9-20) mg/dL Creatinine (0.66-1.25) mg/dL Estimated GFR ML/MIN Glucose (74-106) mg/dL Calcium (8.4-10.2) mg/dL Total Bilirubin (0.2-1.3) mg/dL AST (17-59) U/L ALT (0-50) U/L Alkaline Phosphatase (38-126) U/L Troponin I 0.012 (0.000-0.033) ng/mL NT-Pro-B Natriuret Pep (<300) pg/mL Serum Total Protein (6.3-8.2) g/dL Albumin (3.5-5.0) g/dL Urine Color Yellow (Yellow) Urine Appearance Clear (Clear) Urine pH 6.5 (4.6-8.0) Ur Specific [place] 1.020 (1.005-1.030) Urine Protein Negative (Negative) Urine Glucose (UA) Negative (Negative) mg/dL Urine Ketones Negative (Negative) Urine Blood Negative (Negative) Urine Nitrite Negative (Negative) Urine Bilirubin Negative (Negative) Urine Urobilinogen 1.0 A (0.2) mg/dL Ur Leukocyte Esterase Negative (Negative) U Hyaline Cast (Auto) NONE SEEN (0-2) /LPF Urine Microscopic RBC 0-2 (0-5) /HPF Urine Microscopic WBC 0-2 (0-5) /HPF Ur Epithelial Cells None Seen (None Seen) /HPF Urine Bacteria None Seen (None Seen) /HPF Urine Culture Reflexed NO (NO) 10/31/24 10/31/24 10/31/24 Range/Units 23:44 23:44 23:44 WBC 9.3 H (4.23-9.07) x10^3/uL RBC 5.89 (4.63-6.08) x10^6/uL Hgb 18.4 H (13.7-17.5) g/dL Hct 56.8 H (40.1-51.0) % MCV 96.4 H (79.0-92.2) fL MCH 31.2 (25.7-32.2) pg MCHC 32.4 (32.3-36.5) g/dL RDW 13.1 (11.6-14.4) % Plt Count 150 L (163-337) x10^3/uL MPV 10.0 (9.4-12.4) fL Gran % 69.8 H (34.0-67.9) % Immature Gran % (Auto) 0.4 (0.001-0.429) % Nucleat RBC Rel Count 0.0 (0.00-0.2) % Eos # (Auto) 0.26 (0.04-0.54) x10^3/uL Immature Gran # (Auto) 0.04 H (0.001-0.031) x10^3u/L Absolute Lymphs (auto) 1.55 (1.32-3.57) x10^3/uL Absolute Monos (auto) 0.93 H (0.30-0.82) x10^3/uL Absolute Nucleated RBC 0.00 (0.00-0.012) x10^3u/L Lymphocytes % 16.6 L (21.8-53.1) % Monocytes % 10.0 (5.3-12.2) % Eosinophils % 2.8 (0.8-7.0) % Basophils % 0.4 (0.2-1.2) % Absolute Granulocytes 6.52 H (1.78-5.38) x10^3/uL Basophils # 0.04 (0.01-0.08) x10^3/uL D-Dimer (0.0-0.50) mg/L Sodium 142 (135-145) mmol/L Potassium 4.4 (3.5-5.1) mmol/L Chloride 101 (98-107) mmol/L Carbon Dioxide 35 H (22-30) mmol/L Anion Gap 10.5 (5-15) MEQ/L BUN 22 H (9-20) mg/dL Creatinine 0.80 (0.66-1.25) mg/dL Estimated GFR 100.1 ML/MIN Glucose 141 H (74-106) mg/dL Calcium 9.0 (8.4-10.2) mg/dL Total Bilirubin 0.60 (0.2-1.3) mg/dL AST 37 (17-59) U/L ALT 21 (0-50) U/L Alkaline Phosphatase 61 (38-126) U/L Troponin I 0.012 (0.000-0.033) ng/mL NT-Pro-B Natriuret Pep 169 (<300) pg/mL Serum Total Protein 6.7 (6.3-8.2) g/dL Albumin 3.9 (3.5-5.0) g/dL Urine Color (Yellow) Urine Appearance (Clear) Urine pH (4.6-8.0) Ur Specific [place] (1.005-1.030) Urine Protein (Negative) Urine Glucose (UA) (Negative) mg/dL Urine Ketones (Negative) Urine Blood (Negative) Urine Nitrite (Negative) Urine Bilirubin (Negative) Urine Urobilinogen (0.2) mg/dL Ur Leukocyte Esterase (Negative) U Hyaline Cast (Auto) (0-2) /LPF Urine Microscopic RBC (0-5) /HPF Urine Microscopic WBC (0-5) /HPF Ur Epithelial Cells (None Seen) /HPF Urine Bacteria (None Seen) /HPF Urine Culture Reflexed (NO) - Progress Progress: improved Progress Note: 64-year-old male 1 pack/day smoker presents to our ED for evaluation of progressive shortness of breath. Physical exam reveals diminished breath sounds scattered wheezing with associated rhonchi. Patient in mild respiratory distress upon arrival to our ED. Albuterol nebulizer treatment initiated. Patient received a dose of Solu-Medrol. Blood cultures obtained. Troponin negative. D-dimer positive. CTA chest reveals a intimal defect possible flap possible aortic thrombus observed in the descending aorta. ECGCT advised by radiologist however we do not have this capability. We consulted with [facility]. I spoke to Nain vascular surgeon at [facility] who feels patient should be transferred to [facility] for further evaluation of this defect. I spoke to at 4:57 AM. I advised patient of the need for transfer. Patient states that he does not have insurance. This entire ED visit will have to be paid [id number]. Patient refused ambulance transport due to lack of insurance. However patient states that he would drive himself to [facility] ED. Patient signed out AGAINST MEDICAL ADVICE. We provided patient with a packet containing his medical records pertinent to this ED visit. Patient states he will drive directly to [facility] ED for further evaluation and treatment. RN removed the IV. Medical records were provided to the patient. AMA form completed. Patient is of sound mind. Patient is appropriate to make informed and independent medical decisions. Patient understands that leaving AGAINST MEDICAL ADVICE can result in delayed diagnosis, increased risk of morbidity, mortality, short and long-term disability including . In spite of these risks, patient has decided to leave AGAINST MEDICAL ADVICE. Patient understands that he may return to our ED at any point if he reconsiders. Patient agrees to follow-up with his primary care doctor within 48 hours for reevaluation. Patient voices no other complaints or concerns at this time. We will release patient AGAINST MEDICAL ADVICE per their request. Complexity of problem addressed is moderate acute complicated. No critical care time. Complexity of data reviewed and analyzed as extensive. Test ordered test reviewed results analyzed and correlated clinically with history and physical exam. Management discussed with vascular surgeon at [facility]. Risk of complication and or risk of morbidity/mortality of patient management is high. Patient requires transfer to higher level of care. Vital stable. Time spent to discharge patient AMA is approximately 20 minutes. No social determinants of health present to impede follow-up. Portions of this note were created with voice recognition technology. There may be grammatical, spelling, punctuation or sound alike errors 11/01/24 05:19 11/01/24 05:20 Counseled pt/family regarding: lab results, diagnosis, need for follow-up, rad results - Departure Departure Disposition: AMA Clinical Impression: Pulmonary hypertension, Aortic intimal flap, Polycythemia, COPD exacerbation, SOB (shortness of breath) Condition: Stable Critical Care Time: No Referrals: DOCTOR,NO FAMILY [Primary Care Provider, UNKNOWN] - Follow up/PCP as directed Instructions: Chronic Obstructive Pulmonary Disease
[2024-10-31 23:29] VITALS: TEMP 98.4
[2024-10-31 23:44] LABS: Absolute Neutrophil Ct (ANC) 6.52 x10^3/uL (1.78-5.38); BASOPHIL % 0.4 % (0.2-1.2); Basophil (Absolute #) 0.04 x10^3/uL (0.01-0.08); Eosinophil % 2.8 % (0.8-7.0); Eosinophil (Absolute #) 0.26 x10^3/uL (0.04-0.54); Hematocrit 56.8 % (40.1-51.0); Hemoglobin 18.4 g/dL (13.7-17.5); IMMATURE GRAN # 0.04 x10^3u/L (0.001-0.031); IMMATURE GRAN % 0.4 % (0.001-0.429); Lymphocyte (Absolute #) 1.55 x10^3/uL (1.32-3.57); Lymphocytes % 16.6 % (21.8-53.1); Mean Cell Volume 96.4 fL (79.0-92.2); Mean Corpuscular Hemoglobin 31.2 pg (25.7-32.2); Mean Corpuscular Hgb Concent. 32.4 g/dL (32.3-36.5); Monocyte (Absolute #) 0.93 x10^3/uL (0.30-0.82); Neutrophil % 69.8 % (34.0-67.9); Platelet Count 150 x10^3/uL (163-337); Red Blood Count 5.89 x10^6/uL (4.63-6.08); Red Cell Distribution Width 13.1 % (11.6-14.4); White Blood Count 9.3 x10^3/uL (4.23-9.07)
[2024-10-31] MEDS: DUONEB 0.5-3 MG/3 ml Neb IH ONE (23:47)
[2024-11-01 00:36] LABS: ALBUMIN 3.9 g/dL (3.5-5.0); ANION GAP 10.5 MEQ/L (5-15); BILIRUBIN,TOTAL 0.6 mg/dL (0.2-1.3); Creatinine 1 0.8 mg/dL (0.66-1.25); EST GLOMERULAR FILTRATION RATE 100.1 ML/MIN; Potassium 4.4 mmol/L (3.5-5.1); Total Protein 6.7 g/dL (6.3-8.2)
[2024-11-01 01:40] LABS: Appearance Clear (Clear); Bacteria None Seen /HPF (None Seen); Bilirubin Negative (Negative); Blood Negative (Negative); Epithelial Cells None Seen /HPF (None Seen); Glucose, Urine Negative (Negative); Hyaline Casts NONE SEEN /LPF (0-2); Ketones Negative (Negative); Leukocyte Esterase Negative (Negative); Nitrite Negative (Negative); Ph 6.5 (4.6-8.0); Protein,Urine Dip Negative (Negative); RBC 0-2 /HPF (0-5); WBC 0-2 /HPF (0-5)
[2024-11-01 03:04] VITALS: O2SAT 96
--- NOTE | 2024-11-01 03:42 | XRAY ---
CLINICAL HISTORY: sob, + dimer COMPARISON: CT chest dated on 04/07/2022. TECHNIQUE: Contiguous 3.[address] images of the chest were acquired with administration of intravenous contrast. Coronal and sagittal reconstructions were obtained. 100 ml Isovue 370 was administered for post contrast images. One of the following dose reduction techniques were utilized for this exam: Automated exposure control, adjustment of the mA and/or kV according to patient size, and use of iterative reconstruction. FINDINGS: Please note, suboptimal bolus timing degrades the diagnostic sensitivity of the examination. Lungs: Bilateral multifocal areas of reticulations and atelectatic bands, mainly at the basal segments of the lower lung lobes. Lungs are clear, with no evidence of lobar consolidation or masses. Mild bilateral basal pleural thickening. Spots of pleural calcification on the right side. No pneumothorax. Mediastinum: No mediastinal masses. Right hilar and mediastinal calcified lymph nodes. Hilar Structures: Normal size and configuration, no enlargement. Heart and Great Vessels: Normal heart size and configuration. No pericardial effusion. Normal caliber and course of the thoracic aorta and other great vessels. Atherosclerosis of the aorta and branches noted, with a suspected intimal irregularity/flap on the proximal descending aorta. Normal enhancement of the great vessels post-contrast. Pulmonary Arteries: Suboptimal study due to bolus timings. The mean pulmonary trunk, right and left main pulmonary arteries are well-opacified. No central filling defect to suggest acute pulmonary embolism. Evaluation of subsegmental arteries is limited by nonopacification. The pulmonary trunk is dilated measuring about 3.2 cm in caliber. Suggestive of pulmonary hypertension. Esophagus: Normal course and caliber. No masses or dilatation. Bones: The bony thorax again demonstrates degenerative changes throughout the spine. Old bilateral rib fractures, and healing left 5-8 rib fractures. Chest Wall: No masses or soft tissue abnormalities. Upper Abdomen: Visualized portions of the liver, spleen, pancreas, adrenal glands, and kidneys are normal. No abnormalities noted in the visualized upper abdominal organs. Thyroid: Normal size and morphology. No nodules or masses. IMPRESSION: 1. Suboptimal bolus timing degrades the diagnostic sensitivity of the examination. No central filling defect to suggest acute pulmonary embolism. Limited evaluation of subsegmental pulmonary arteries. 2. There is a possible intimal irregularity or flap in the proximal descending aorta. No evidence of aneurysmal dilatation is seen. Recommend ECG-gated CTA for better evaluation if clinically warranted. 3. Evidence of pulmonary hypertension. Clinical correlation recommended. Unchanged. 4. Lungs again demonstrate bibasilar fibrosis/scarring and right base calcified pleural plaque. Unchanged. 5. Right hilar and mediastinal calcified lymph nodes; possibly old granulomatous disease. Unchanged. 6. Bilateral lower ribs, multiple old fractures seen. Unchanged. 7. No significant interval changes in the limits of CT chest with contrast. [facility] ER was called at [phone] at 02:33 AM GLOBAL ACCOUNT MANAGER, 09/03/2024 and FAISAL Dawson was informed regarding the presence of critical medical findings in the report. Electronically Signed by: Donya Simon MD. (11/01/2024 03:37:55 EDT)
[2024-11-01 05:07] VITALS: BP 111/81; PULSE 95; RESP 23
== END 2024-11-01 05:30 | disposition left against medical advice (07) ==
LOC: ED 23:01
DX: I27.20 Pulmonary hypertension, unspecified (principal); D75.1 Secondary polycythemia; J44.1 Chronic obstructive pulmonary disease with (acute) exacerbation; R06.02 Shortness of breath; I99.8 Other disorder of circulatory system; M79.89 Other specified soft tissue disorders; I10 Essential (primary) hypertension; Z72.0 Tobacco use
CPT/HCPCS: 36415; 71260; 80053; 81001; 83880; 84484; 85025; 85379; 93005; 93041; 94640; 94760; 99284; 99285; A9270-GY